=== PATIENT | male | born 1975 | race Caucasian/White ===

== ENCOUNTER 2018-06-27 10:32 | Emergency (ER) | payer MEDICAID ==
[~2018-06-27] VITALS: Ht 167.6 cm; Wt 109.1 kg
[~2018-06-27 10:32] MED LIST: ACET-3068 PO; IBUP-1984 PO; NO HOME MEDS
[2018-06-27 10:37] VITALS: BP 147/85
[2018-06-27] MEDS ORDERED: sulfamethoxazole/trimethoprim DS (800/160mg) tablet PO ONE (12:10)
[2018-06-27] MEDS ORDERED: ibuprofen 200mg tablet PO ONE (12:15)
[2018-06-27] MEDS ORDERED: SULF1TAB49 PO (12:19)
== END 2018-06-27 12:34 | disposition home or self-care (01) ==
LOC: ER 10:32
DX: L03.116 Cellulitis of left lower limb (principal); F17.200 Nicotine dependence, unspecified, uncomplicated; F15.90 Other stimulant use, unspecified, uncomplicated; Z79.899 Other long term (current) drug therapy; Z59.0 Homelessness
CPT/HCPCS: 99284

== ENCOUNTER 2018-07-17 02:05 | Emergency (ER) | payer MEDICAID ==
[~2018-07-17] VITALS: Ht 167.6 cm; Wt 106.0 kg
[~2018-07-17 02:05] MED LIST changes: +SULF1TAB49 PO
[2018-07-17 02:07] VITALS: BP 120/67
[2018-07-17] MEDS ORDERED: CEPH500C5 PO (03:09)
[2018-07-17] MEDS ORDERED: ALBU8HFA PO (03:09)
[2018-07-17] MEDS ORDERED: SULF1TAB49 PO (03:09)
== END 2018-07-17 03:35 | disposition home or self-care (01) ==
LOC: ER 02:06
DX: S80.212A Abrasion, left knee, initial encounter (principal); L03.116 Cellulitis of left lower limb; F15.10 Other stimulant abuse, uncomplicated; Z59.0 Homelessness; Z79.899 Other long term (current) drug therapy; X58.XXXA Exposure to other specified factors, initial encounter; Y93.89 Activity, other specified; Y92.89 Other specified places as the place of occurrence of the external cause; Y99.8 Other external cause status
CPT/HCPCS: 99283

== ENCOUNTER 2018-08-14 01:46 | Emergency (ER) | payer MEDICAID ==
[~2018-08-14] VITALS: Ht 167.6 cm; Wt 92.4 kg
[~2018-08-14 01:46] MED LIST changes: +ALBU8HFA PO; +CEPH500C5 PO
[2018-08-14] MEDS ORDERED: CEPH500C5 PO (02:20)
[2018-08-14] MEDS ORDERED: sulfamethoxazole/trimethoprim DS (800/160mg) tablet PO ONE (02:20)
[2018-08-14] MEDS ORDERED: SULF1TAB49 PO (02:20)
[2018-08-14 02:49] VITALS: BP 130/89
== END 2018-08-14 02:51 | disposition home or self-care (01) ==
LOC: ER 01:46
DX: L03.115 Cellulitis of right lower limb (principal); F15.10 Other stimulant abuse, uncomplicated; Z59.0 Homelessness
CPT/HCPCS: 99283

== ENCOUNTER 2025-02-22 15:12 | Emergency (ER) | payer MEDICAID, OTHER ==
[~2025-02-22] VITALS: Ht 167.6 cm; Wt 119.0 kg
[~2025-02-22 15:12] MED LIST changes: -ALBU8HFA PO; -CEPH500C5 PO; -SULF1TAB49 PO
[2025-02-22 16:16] LABS: BASOPHILS # (AUTO) 0.1 X10'3 (0-0.2); BASOPHILS % (AUTO) 0.8 % (0-1); EOSINOPHILS # (AUTO) 0.2 X10'3 (0-0.9); EOSINOPHILS % (AUTO) 1.4 % (0-6); HEMATOCRIT 46.3 % (42.0-52.0); HEMOGLOBIN 15.5 g/dl (14.0-17.9); LYMPHOCYTES # (AUTO) 3.1 X10'3 (1.1-4.8); LYMPHOCYTES % (AUTO) 25.8 % (21-51); MEAN CORPUSCULAR HEMOGLOBIN 30.9 PG (27.0-31.0); MEAN CORPUSCULAR HGB CONC 33.4 g/dL (33.0-36.5); MEAN CORPUSCULAR VOLUME 92.3 FL (78-98); MEAN PLATELET VOLUME 8.3 FL (7.4-10.4); MONOCYTES # (AUTO) 1.1 X10'3 (0-0.9); MONOCYTES % (AUTO) 9.5 % (2-12); NEUTROPHILS # (AUTO) 7.4 X10'3 (1.8-7.7); NEUTROPHILS % (AUTO) 62.5 % (42-75); PLATELET COUNT 202 X10'3 (140-440); RED BLOOD COUNT 5.02 X10'6 (4.70-6.10); RED CELL DISTRIBUTION WIDTH 14.1 % (11.5-14.5); WHITE BLOOD COUNT 11.9 X10'3 (4.5-11.0)
[2025-02-22 16:31] LABS: ALANINE AMINOTRANSFERASE 133 U/L (12-78); ALBUMIN/GLOBULIN RATIO 1.1 (1.1-1.5); ALKALINE PHOSPHATASE 62 IU/L (46-116); ANION GAP 7 (8-16); ASPARTATE AMINO TRANSFERASE 56 U/L (10-37); BILIRUBIN,TOTAL 0.4 MG/DL (0.1-1.0); BLOOD UREA NITROGEN 15 MG/DL (7-18); BUN/CREATININE RATIO 14.9 (10.0-20.0); CALCIUM 9.2 MG/DL (8.5-10.1); CHLORIDE 108 MMOL/L (99-107); CREATININE 1.01 MG/DL (0.60-1.10); GLUCOSE 102 MG/DL (70-104); POTASSIUM 4.2 MMOL/L (3.5-5.1); SODIUM 146 MMOL/L (135-145); TOTAL CARBON DIOXIDE 31.2 MMOL/L (24-32); TOTAL PROTEIN 7.8 G/DL (6.4-8.2); eCRCL 82 ML/MIN; eGFR 79 ML/MIN
[2025-02-22 16:41] LABS: PRO BRAIN NATRIURETIC PEPTIDE 38 PG/ML (0-125)
[2025-02-22 18:27] VITALS: BP 117/68; PULSE 69; RESP 15; TEMP 98.2; O2SAT 96
[2025-02-22] MEDS: LORazepam 0.5 MG tablet PO ONE (18:38)
== END 2025-02-22 18:30 | disposition home or self-care (01) ==
LOC: ER 15:13
DX: R00.2 Palpitations (principal); R20.2 Paresthesia of skin; E78.00 Pure hypercholesterolemia, unspecified; F17.200 Nicotine dependence, unspecified, uncomplicated
CPT/HCPCS: 36415; 71045; 80053; 82948; 83880; 84484; 85025; 93005; 99285

== ENCOUNTER 2025-07-18 16:07 | Emergency (ER) | payer MEDICAID, OTHER ==
[~2025-07-18] VITALS: Ht 170.2 cm; Wt 114.5 kg
[2025-07-18 16:09] VITALS: BP 137/94; PULSE 119; RESP 18; TEMP 97.6; O2SAT 98
--- NOTE | 2025-07-18 16:59 | Physician Documentation ---
History of Present Illness ~ Chief Complaint: Rash Stated Complaint: RASH Time Seen by MD: 16:53 Primary Medical Doctor: [facility] HPI Patient is a 49-year-old gentleman that presents to the emergency department for evaluation of a rash times several weeks. She reports that the rashes to his lower legs and medial upper legs bilaterally. Patient reports he lives at the [place] and and has developed the rash during that time. Patient reports the rash is very itchy and gets worse as he itches it and it starts to bleed periodically. Patient denies any other significant past medical history or any other complaints at this time. Medication Reconciliation Allergies: Coded Allergies: No Known Allergies (Unverified , 07/18/25) Scheduled Acetaminophen With Codeine* (Tylenol #3*), 1 TAB PO Q4H Ibuprofen* (Motrin*), 600 MG PO BID Miscellaneous Medications Home Med List (No Home Medications), (Reported) Past Medical History Past Medical History: No Pertinent History Past Surgical History: no surgical history Alcohol Use: Occasionally Drug Use: methamphetamine Lives In: Homeless Review of Systems ROS As stated above in the HPI, otherwise all systems are reviewed and negative. Physical Exam Vital Signs: Temperature: 97.6, Source: Temporal, Heart Rate: 119, Respiratory Rate: 18, BP: 137/94, Pulse Oximetry: 98, Weight: 114.450 Physical Exam VITALS: Reviewed and as above. GENERAL: Alert, no apparent distress. HEENT: Normocephalic, atraumatic, PERRL, EOMI, dry mucosa, no erythema RESPIRATORY: Lungs clear, normal breath sounds, no respiratory distress. CHEST: No accessory muscle use, no retractions CV: Regular rate, rhythm, no edema, no murmur, No: JVD GI: Soft, non-tender, bowels sounds present, no rebound, guarding, or rigidity BACK: No CVA tenderness, or swelling MUSCULOSKELETAL No deformities, no edema SKIN: Warm and dry, rash to bilateral lower extremities and medial thighs, mild erythema noted, mild bleeding and scabbing noted. NEURO: Oriented x4, No motor or sensory deficit PSYCH: Normal mood and affect, no agitation Progress Results/Orders Results/Orders Vital Signs 07/18/25 16:09 Temp 97.6 Pulse 119 Resp 18 B/P (MAP) 137/94 Pulse Ox 98 Medical Decision Making Findings This patient who presents with rash for the we consistent with bedbugs versus contact dermatitis. History and exam findings not consistent with dangerous etiologies of rash such as SJS/TEN, or secondary dangerous causes such as pet echial rashes from thrombocytopenia or rickettsial infections. Rash does not appear urticarial with no signs of anaphylaxis either. Plan at this time is to treat symptomatically, instruct to follow up with PCP or derm PRN. Patient will return to the emergency department if any worsening of his current symptoms or any additional concerning symptoms that we discussed here today i.e. increased redness increased swelling increased total body surface area of the rash fevers or any other concerning symptoms present. Differential Dx:Considerations: Include: Abscess, AIDS/HIV, Anthrax (cutaneous), Atopic dermatitis, Candidiasis, Contact dermatitis, Drug reaction, Erythema multiforme, Erysipelas, Gangrene, Herpes zoster, Herpes simplex, Hidradenitis suppurativa, Impetigo, Intertrigo, Lymes disease, Molluscum contagiosum, Osteomyelitis, Pediculosis, Pityriasis rosea, Psoriaisis, RMSF, Rosacea, Scabies, Scarlet fever, Tinea, Urticaria, Varicella, Viral exanthema, Other Departure Disposition: 01 HOME / SELF CARE / HOMELESS Impression: Primary Impression: Rash Discharge Instructions: Bedbugs, [id number], Contact Dermatitis Additional Instructions: his patient who presents with rash for the we consistent with bedbugs versus contact dermatitis. History and exam findings not consistent with dangerous etiologies of rash such as SJS/TEN, or secondary dangerous causes such as p etechial rashes from thrombocytopenia or rickettsial infections. Rash does not appear urticarial with no signs of anaphylaxis either. Plan at this time is to treat symptomatically, instruct to follow up with PCP or derm PRN. Patient will return to the emergency department if any worsening of his current symptoms or any additional concerning symptoms that we discussed here today i.e. increased redness increased swelling increased total body surface area of the rash fevers or any other concerning symptoms present. Please take Benadryl as needed for the itching please apply hydrocortisone cream to the areas affected. Referrals: NO PRIMARY CARE PROVIDER (PCP) Prescriptions Hydrocortisone (hydrocortisone 1% cream) 1 % Cream..g. 1 APPLIC TOP Q12H for 7 Days, #30 GM 0 Refills apply to affected area(s) Prov: JESSICA MATTA 07/18/25 Education Educated: Patient Educated regarding: diagnosis, prognosis, need for follow up Signature Scribe Signature: a Attestation: Scribed for Emergency,Department by JOHAN Reynolds . 07/18/25 17:01 JESSICA MATTA Jul 18, 2025 16:59
[2025-07-18] MEDS ORDERED: HYDR28CR14 TOP (17:00)
== END 2025-07-18 17:10 | disposition home or self-care (01) ==
LOC: ER 16:07
DX: R21 Rash and other nonspecific skin eruption (principal)
CPT/HCPCS: 99282

== ENCOUNTER 2025-10-03 15:43 | Emergency (ER) | payer MEDICAID ==
[~2025-10-03] VITALS: Ht 172.7 cm; Wt 122.7 kg
[~2025-10-03 15:43] MED LIST changes: +HYDR28CR14 TOP
[2025-10-03 15:47] VITALS: TEMP 98
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
[2025-10-03 17:49] VITALS: BP 100/50; PULSE 91; RESP 16; O2SAT 94
== END 2025-10-03 17:57 ==
LOC: ER 15:44
DX: S00.83XA Contusion of other part of head, initial encounter (principal); X58.XXXA Exposure to other specified factors, initial encounter; Y93.89 Activity, other specified; Y92.89 Other specified places as the place of occurrence of the external cause; Y99.8 Other external cause status
CPT/HCPCS: 70450; 73590; 99284